=== PATIENT | female | born 1980 | race Caucasian/White ===

== ENCOUNTER → 2018-05-13 | Outpatient (CLI) | payer OTHER ==
[~2018-05-13] MED LIST: GADOBUTROL 10 MMOL/10 ML PFS ONE
== END | disposition home or self-care (01) ==
LOC: CFH 07:29
PROVIDERS: ATTEND Family Medicine
DX: I67.82 Cerebral ischemia (principal); Q28.3 Other malformations of cerebral vessels; H20.029 Recurrent acute iridocyclitis, unspecified eye
CPT/HCPCS: 70553; A9585

== ENCOUNTER 2018-06-30 14:56 | Outpatient (CLI) | payer OTHER ==
[2018-06-30 16:23] LABS: C-REACTIVE PROTEIN, QUANT 0.07 mg/dL (0.02-0.49); FREE T4 (FREE THYROXINE) 0.95 ng/dL (0.76-1.46); T4 (THYROXINE) 8.9 mcg/dL (4.8-13.9); THYROID STIMULATING HORMONE 0.843 mIU/L (0.358-3.740)
[2018-06-30 16:40] LABS: FOLATE LEVEL 8.5 ng/mL (3.1-17.5)
== END 2018-06-30 23:59 | disposition home or self-care (01) ==
LOC: CFH 14:56
PROVIDERS: ATTEND Psychiatry & Neurology Neurology
DX: D86.0 Sarcoidosis of lung (principal); R51 Headache
CPT/HCPCS: 36415; 71046; 82164; 82607; 82746; 84436; 84439; 84443; 84481; 86140; 86235; 86618

== ENCOUNTER 2018-08-13 08:45 | Outpatient (CLI) | payer OTHER ==
[2018-08-13] MEDS ORDERED: TOPI25TA8 PO (09:27)
[2018-08-13] MEDS ORDERED: LAMO25TA52 PO (09:27)
[2018-08-13] MEDS ORDERED: PARO40TA3 PO (09:27)
== END 2018-08-13 23:59 | disposition home or self-care (01) ==
LOC: STAR 08:45
PROVIDERS: ATTEND Specialist
DX: Z02.9 Encounter for administrative examinations, unspecified (principal)

== ENCOUNTER 2018-08-19 05:12 | Day surgery (SDC) | payer OTHER ==
[2018-08-13 09:21] VITALS: BP 95/67
[~2018-08-19] VITALS: Ht 175.3 cm; Wt 84.3 kg
[~2018-08-19 05:12] MED LIST changes: -GADOBUTROL 10 MMOL/10 ML PFS ONE; +LAMO25TA52 PO; +PARO40TA3 PO; +TOPI25TA8 PO
[2018-08-19] MEDS ORDERED: LACTATED RINGERS 1,000 ML IV SCH (05:52)
[2018-08-19 05:53] VITALS: BP 95/67
[2018-08-19] MEDS ORDERED: OXYMETAZOLINE NASAL SPRAY 0.05%, 15ML ONE (06:14)
[2018-08-19] MEDS ORDERED: EPINEPHRINE 1 MG/ML, 1ML ONE (06:14)
[2018-08-19] MEDS ORDERED: LIDOCAINE 1%, 20ML ONE (06:14)
[2018-08-19] MEDS ORDERED: COCAINE TOPICAL SOLN 4%, 4ML ONE (06:14)
[2018-08-19] MEDS ORDERED: BUPIVACAINE/PF-EPI 0.5% 1:200K ONE (06:31)
[2018-08-19] MEDS ORDERED: MIDAZOLAM 1 MG/ML, 2ML ONE (06:39)
[2018-08-19] MEDS ORDERED: FENTANYL PF 250 MCG/5ML ONE (06:39)
[2018-08-19] MEDS ORDERED: SCOPOLAMINE PATCH, 1.5MG PATCH.TD72 TD ONE (06:59)
[2018-08-19] MEDS ORDERED: LIDOCAINE 4%, 4 ML SYR/CANN TP ONE (07:24)
[2018-08-19] MEDS ORDERED: NEOSPORIN OINT, 15GM ONE (07:36)
[2018-08-19] MEDS ORDERED: PROPOFOL 10 MG/ML, 20ML ONE (07:48)
[2018-08-19] MEDS ORDERED: CEFAZOLIN 1,000 MG ONE (07:48)
[2018-08-19] MEDS ORDERED: SUCCINYLCHOLINE 20 MG/ML, 10ML ONE (07:48)
[2018-08-19] MEDS ORDERED: NEOSTIGMINE 1 MG/ML, 10ML ONE (07:48)
[2018-08-19] MEDS ORDERED: ONDANSETRON 2MG/ML, 2ML ONE (07:48)
[2018-08-19] MEDS ORDERED: EPHEDRINE 50 MG/ML, 1ML ONE (07:48)
[2018-08-19] MEDS ORDERED: ROCURONIUM 10MG/ML,5ML ONE (07:48)
[2018-08-19] MEDS ORDERED: GLYCOPYRROLATE 0.2MG/1ML, 5ML ONE (07:48)
[2018-08-19] MEDS ORDERED: DEXAMETHASONE 4 MG/ML, 1ML ONE (07:48)
[2018-08-19] MEDS ORDERED: NEO/BACI/POLY/HC OINT 15GM TP ONE (08:00)
[2018-08-19] MEDS ORDERED: THROMBIN 20,000 UNIT VIAL TP ONE (09:07)
[2018-08-19] MEDS ORDERED: OXYcodone 5 MG/5 ML ORAL.SOL UDC ONE (09:48)
[2018-08-19] MEDS ORDERED: MORPHINE SULFATE 4 MG/ML, 1ML ONE (09:48)
[2018-08-19] MEDS ORDERED: ONDANSETRON 2MG/ML, 2ML IV PRN (10:00)
[2018-08-19] MEDS ORDERED: MEPERIDINE/PF 25MG/0.5ML IVPush PRN (10:00)
[2018-08-19] MEDS ORDERED: MORPHINE SULFATE 4 MG/ML, 1ML IVPush PRN (10:00)
[2018-08-19] MEDS ORDERED: PROMETHAZINE 25 MG/ML, 1ML IV PRN (10:00)
[2018-08-19] MEDS ORDERED: OXYcodone 5 MG/5 ML ORAL.SOL UDC PO PRN (10:00)
[2018-08-19] MEDS ORDERED: FENTANYL PF 100 MCG/2ML IV PRN (10:00)
[2018-08-19] MEDS ORDERED: HYDROcodone/APAP 7.5-325MG/15ML UDC PO PRN ×2 (10:00→11:30)
[2018-08-19] MEDS ORDERED: MIDAZOLAM 1 MG/ML, 2ML IV PRN (10:00)
[2018-08-19] MEDS ORDERED: ONDANSETRON 2MG/ML, 2ML IVPush PRN (11:30)
[2018-08-19] MEDS ORDERED: ACETAMINOPHEN 650 MG/20.3 ML UDC ONE (12:13)
[2018-08-19] MEDS ORDERED: ACETAMINOPHEN 650 MG/20.3 ML UDC PO ONE (12:30)
== END 2018-08-19 12:35 | disposition home or self-care (01) ==
LOC: OR 05:12 → OUT 12:35
PROVIDERS: ATTEND Specialist
DX: J32.0 Chronic maxillary sinusitis (principal); J32.2 Chronic ethmoidal sinusitis; J35.01 Chronic tonsillitis; J35.8 Other chronic diseases of tonsils and adenoids; M95.0 Acquired deformity of nose; J34.89 Other specified disorders of nose and nasal sinuses; Z88.8 Allergy status to other drugs, medicaments and biological substances; Z91.040 Latex allergy status
CPT/HCPCS: 30465; 31255; 31256; 42821; 61782; 88304; 88311; C1763; J0171; J0690; J1100; J2250; J2405; J2704; J2710; J3010; J3490; J7120; J0330